=== PATIENT | female | born 1945 | race Caucasian/White ===

== ENCOUNTER 2017-07-30 16:14 | Outpatient (CLI) | payer MEDICARE, OTHER ==
--- NOTE | 2017-07-31 09:01 | XRAY Report ---
Procedure Date: 07/30/2017 Accession Number: [id number] / [id number] Procedure: XRS - Chest 2 View X-Ray CPT Code: 10103 FULL RESULT: EXAM: Chest 2 View X-Ray DATE: 07/30/2017 4:28 PM CLINICAL HISTORY: COUGH, FORMER SMOKER, HX BREAST CANCER COMPARISON: None. TECHNIQUE: 2 views. FINDINGS: Lungs/Pleura: No focal opacities evident. No pneumothorax or pleural effusion. Normal volumes. Mediastinum: Heart and mediastinal contours are unremarkable. Other: None. IMPRESSION: Normal 2-view chest radiography. [facility]
== END 2017-07-30 16:15 | disposition home or self-care (01) ==
LOC: DI.S 16:14
PROVIDERS: ATTEND Physician Assistant
DX: R05 Cough (principal); Z87.891 Personal history of nicotine dependence; Z85.3 Personal history of malignant neoplasm of breast
CPT/HCPCS: 71046

== ENCOUNTER 2020-01-02 14:53 | Outpatient (CLI) | payer MEDICARE, OTHER ==
--- NOTE | 2020-01-02 16:36 | XRAY Report ---
PROCEDURE: Chest 2 View X-Ray INDICATIONS: COUGH TECHNIQUE: 2 view(s) of the chest. COMPARISON: None. FINDINGS: Surgical changes and devices: None. Lungs and pleura: No pleural effusions or pneumothorax. Lungs are clear. Mediastinum: Mediastinal contours are normal. Heart size is normal. Bones and chest wall: No suspicious bony abnormalities. Soft tissues appear unremarkable. IMPRESSION: No acute pulmonary process. Reviewed by: Katiana Quintero MD on 01/02/2020 4:34 PM [facility] Approved by: Katiana Quintero MD on 01/02/2020 4:34 PM PST Station ID: [id number]
== END 2020-01-02 14:54 | disposition home or self-care (01) ==
LOC: DI 14:53
PROVIDERS: ATTEND Nurse Practitioner Family
DX: R05 Cough (principal)
CPT/HCPCS: 71046

== ENCOUNTER 2021-10-30 08:00 | Outpatient (CLI) | payer MEDICARE, OTHER ==
[2021-10-30 17:00] LABS: BASOPHILS % (AUTO) 0.8 %; EOSINOPHILS # (AUTO) 0.2 10^3/uL (0.0-0.7); EOSINOPHILS % (AUTO) 3.3 %; HCT - HEMATOCRIT 40.1 % (37.0-47.0); HGB - HEMOGLOBIN 13.1 g/dL (12.0-16.0); LYMPHOCYTES # (AUTO) 1.6 10^3/uL (1.5-3.5); LYMPHOCYTES % (AUTO) 30.6 %; MEAN CORPUSCULAR HEMOGLOBIN 33.5 pg (27.0-31.0); MEAN CORPUSCULAR HGB CONC 32.7 g/dL (32.0-36.0); MEAN CORPUSCULAR VOLUME 102.6 fL (81.0-99.0); MEAN PLATELET VOLUME 11.4 fL (7.9-10.8); MONOCYTES # (AUTO) 0.6 10^3/uL (0.0-1.0); MONOCYTES % (AUTO) 10.8 %; NEUTROPHILS # (AUTO) 2.8 10^3/uL (1.5-6.6); NEUTROPHILS % (AUTO) 54.1 %; PLT - PLATELET COUNT 249 10^3/uL (130-450); RED BLOOD COUNT 3.91 10^6/uL (4.20-5.40); RED CELL DISTRIBUTION WIDTH 12.6 % (12.0-15.0); WHITE BLOOD COUNT 5.2 x10^3/uL (4.8-10.8)
[2021-10-30 17:20] LABS: ALBUMIN 3.8 g/dL (3.2-5.5); ALBUMIN/GLOBULIN RATIO 1.3 (1.0-2.2); ALKALINE PHOSPHATASE 43 IU/L (42-121); ALT ALANINE AMINOTRANSFERASE 19 IU/L (10-60); AST ASPARTATE AMINOTRANSFERASE 18 IU/L (10-42); BILIRUBIN,TOTAL 0.7 mg/dL (0.2-1.0); BUN - BLOOD UREA NITROGEN 16 mg/dL (6-20); CALCIUM 9.2 mg/dL (8.5-10.3); CARBON DIOXIDE - CO2 25 mmol/L (21-32); CHLORIDE 105 mmol/L (101-111); CHOLESTEROL 250 mg/dL; CREATININE 0.9 mg/dL (0.4-1.0); GFR - MDRD 61 (>89); GLUCOSE 96 mg/dL (70-100); HDL CHOLESTEROL 62 mg/dL; LDL CHOLESTEROL,CALCULATED 174 mg/dL; LDL/HDL RATIO 2.8 (<4.4); POTASSIUM 4.1 mmol/L (3.5-5.0); SODIUM 138 mmol/L (135-145); TOTAL PROTEIN 6.8 g/dL (6.7-8.2); TRIGLYCERIDES 72 mg/dL; VLDL CHOLESTEROL 14 mg/dL
[2021-10-30 20:20] LABS: ESTIMATED AVERAGE GLUCOSE 111 mg/dL (70-100); HEMOGLOBIN A1c% 5.5 % (4.27-6.07)
== END 2021-10-30 23:59 | disposition home or self-care (01) ==
LOC: LAB.R 08:00
PROVIDERS: ATTEND Internal Medicine
DX: Z00.00 Encounter for general adult medical examination without abnormal findings (principal); C50.919 Malignant neoplasm of unspecified site of unspecified female breast; E78.5 Hyperlipidemia, unspecified; I10 Essential (primary) hypertension; R73.01 Impaired fasting glucose; M25.519 Pain in unspecified shoulder
CPT/HCPCS: 80053; 80061; 83036; 83721; 84443; 85025

== ENCOUNTER 2023-07-23 14:58 | Emergency (ER) | payer MEDICARE, OTHER ==
[2023-07-23 15:28] LABS: BASOPHILS # (AUTO) 0.1 10^3/uL (0.0-0.1); BASOPHILS % (AUTO) 0.7 %; EOSINOPHILS # (AUTO) 0.2 10^3/uL (0.0-0.7); EOSINOPHILS % (AUTO) 2.8 %; HCT - HEMATOCRIT 40.8 % (37.0-47.0); HGB - HEMOGLOBIN 13.7 g/dL (12.0-16.0); LYMPHOCYTES % (AUTO) 28.1 %; MEAN CORPUSCULAR HEMOGLOBIN 33.6 pg (27.0-31.0); MEAN CORPUSCULAR HGB CONC 33.6 g/dL (32.0-36.0); MEAN PLATELET VOLUME 10.2 fL (7.9-10.8); MONOCYTES # (AUTO) 0.7 10^3/uL (0.0-1.0); MONOCYTES % (AUTO) 10.2 %; NEUTROPHILS # (AUTO) 4.1 10^3/uL (1.5-6.6); NEUTROPHILS % (AUTO) 57.9 %; PLT - PLATELET COUNT 271 10^3/uL (130-450); RED BLOOD COUNT 4.08 10^6/uL (4.20-5.40); RED CELL DISTRIBUTION WIDTH 12.7 % (12.0-15.0); WHITE BLOOD COUNT 7.1 x10^3/uL (4.8-10.8)
[2023-07-23 15:49] VITALS: O2SAT 97
--- NOTE | 2023-07-23 15:50 | XRAY Report ---
PROCEDURE: Chest 1V INDICATIONS: Chest pain TECHNIQUE: One view of the chest was acquired. COMPARISON: 01/02/2020 FINDINGS: Surgical changes and devices: None. Lungs and pleura: No pleural effusions or pneumothorax. Lungs are clear. Mediastinum: Mediastinal contours appear normal. Heart size is normal. Bones and chest wall: No suspicious bony lesions. Overlying soft tissues appear unremarkable. IMPRESSION: No acute cardiopulmonary process. Reviewed by: Cameron Ocampo MD on 07/23/2023 3:49 PM PDT Approved by: Cameron Ocampo MD on 07/23/2023 3:49 PM PDT Station ID: [id number]
[2023-07-23 15:53] LABS: ALBUMIN 4.2 g/dL (3.2-5.5); ALBUMIN/GLOBULIN RATIO 1.8 (1.0-2.2); BILIRUBIN,TOTAL 0.5 mg/dL (0.2-1.0); CALCIUM 9.6 mg/dL (8.5-10.3); POTASSIUM 3.7 mmol/L (3.5-4.5); TOTAL PROTEIN 6.6 g/dL (6.4-8.9)
--- NOTE | 2023-07-23 15:53 | ED Physician Documentation ---
PD HPI CHEST PAIN - Stated complaint Stated Complaint: HIGH BP,CHEST PX - Chief complaint Chief Complaint: Cardiac - History obtained from History obtained from: Patient, EMS - Additional information Additional information: Patient comes to the emergency department chief complaint of chest pressure that started around 1330 today. She states she was out working in her garden's, squatting down, when the discomfort started. The patient denies any shortness of breath currently. No diaphoresis. No nausea. She has a history of hypertension but denies any cardiac diagnoses or history of diabetes. She is a former smoker who smoked for about 20 years, then quit about 37 years ago. The patient denies any symptoms of respiratory illness recently. She does note that when she walks around or goes upstairs, she has gradually become more short of breath over the last year to than she used to be, and wonders if she has some COPD. No other complaints at this time. 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 : None HEENT: None Psych: None Musculoskeletal: None Derm: None - Past Surgical History Past Surgical History: Yes - Present Medications Home Medications: Ambulatory Orders Medication Instructions Recorded Confirmed lisinopriL [Zestril] 5 mg PO DAILY 07/23/23 07/23/23 - Allergies Allergies/Adverse Reactions: Allergies Allergy/AdvReac Type Severity Reaction Status Date / Time No Known Drug Allergies Allergy Verified 07/23/23 15:07 - Social History Does the pt smoke?: No Smoking Status: Never smoker Does the pt drink ETOH?: No Does the pt have substance abuse?: No - Immunizations Immunizations are current?: Yes PD ED PE NORMAL - Vitals Vital signs reviewed: Yes - General General: Alert and oriented X 3, No acute distress, Well developed/nourished, Other (The patient is very well-appearing) - HEENT HEENT: Atraumatic, EOMI, Moist mucous membranes - Neck Neck: Supple, no meningeal sign - Cardiac Cardiac: RRR, No murmur - Respiratory Respiratory: No respiratory distress, Clear bilaterally - Abdomen Abdomen: Soft, Non tender, Non distended - Derm Derm: Normal color, Warm and dry, No rash - Extremities Extremities: No deformity, No edema, No calf tenderness / cord - Neuro Neuro: Other (Alert, grossly oriented, grossly intact.) - Psych Psych: Normal mood, Normal affect Results - Vitals Vitals: Oxygen O2 Source Room air - EKG (time done) 1516 EKG releavant findings:: EKG personally interpreted by author of this note. Relevant findings are: Rate: Rate (enter#) (109) Rhythm: Sinus tachycardia Harper: Normal Intervals: Normal RI QRS: LVH Ischemia: Normal ST segments Compare to prior EKG: Old EKG unavailable Computer interpretation: Agree with computer - Labs Labs: Laboratory Tests 07/23/23 07/23/23 07/23/23 15:23 15:23 17:29 WBC 7.1 RBC 4.08 L Hgb 13.7 Hct 40.8 MCV 100.0 H MCH 33.6 H MCHC 33.6 RDW 12.7 Plt Count 271 MPV 10.2 Neut # (Auto) 4.1 Lymph # (Auto) 2.0 [place] # (Auto) 0.7 Eos # (Auto) 0.2 Baso # (Auto) 0.1 Absolute Nucleated RBC 0.00 Nucleated RBC % 0.0 Sodium 139 Potassium 3.7 Chloride 105 Carbon Dioxide 26 Anion Gap 8.0 BUN 18 Creatinine 1.0 Estimated GFR (MDRD) 54 L Glucose 105 H Calcium 9.6 Total Bilirubin 0.5 AST 18 ALT 14 Alkaline Phosphatase 46 Troponin I High Sens 3.6 4.1 Total Protein 6.6 Albumin 4.2 Globulin 2.4 Albumin/Globulin Ratio 1.8 Lipase 23 PD Medical Decision Making - ED course Complexity details: reviewed results, re-evaluated patient, considered differential, d/w patient, d/w family ED course: The patient was evaluated in the emergency department by myself immediately upon arrival. Overall she was well-appearing, but given her symptoms and age, as well as history of hypertension, I felt she should have a cardiac workup. EKG was performed and other than mild sinus tachycardia was unremarkable. She was also worked up with chest x-ray, also unremarkable, and laboratory studies including serial troponins. The pt's work-up was negative, and she was feeling better. She was stable for d/c home. I have encouraged her to follow-up with her PCP to discuss stress test. We have discussed the usual indications for return. Departure - Departure Disposition: Home, Self Care Clinical Impression: Atypical chest pain Hypertension Qualifiers: Hypertension type: primary hypertension Qualified Code(s): I10 - Essential (primary) hypertension Condition: Stable Instructions: ED Chest Pain Atypical Unkn Cause, ED HTN Established Comments: All of your tests look great today. Your cardiac enzymes were well within normal limits twice, indicating that the cause of your symptoms today is not a heart attack. There are many potential causes for chest pain, some of which are emergent and some of which are not. We have ruled out the emergent causes. However, if you find that you are having recurrent episodes of chest discomfort, it is important that you follow-up with your primary doctor to talk about having a stress test done to be sure you Do not have underlying coronary artery disease, the condition which leads to heart attacks. Your blood pressure is not dangerously high today but it has been running above normal. If this is an ongoing issue for you, you can consider doubling your lisinopril from 5 to 10 mg, as you are currently on a very low dose. If this results in improvement, you may asked Dr. Larson to make your next prescription reflective of the new dose. Please schedule a follow-up appointment with her for your regular care as well. If you do have recurrence of chest pain, especially if associated with shortness of breath, nausea, sweating, and or lightheadedness, please return to the emergency department. Forms: PCP List Discharge Date/Time: 07/23/23 18:40
[2023-07-23 15:55] LABS: TROPONIN I HIGH SENSITIVITY 3.6 ng/L (2.3-14.8)
[2023-07-23 19:33] VITALS: BP 161/63
== END 2023-07-23 18:40 | disposition home or self-care (01) ==
LOC: ED 14:58
DX: R07.89 Other chest pain (principal); I10 Essential (primary) hypertension
CPT/HCPCS: 36415; 80053; 83690; 84484; 85025; 93005; 99283; 99284